=== PATIENT | male | born 1970 | race Caucasian/White ===

== ENCOUNTER 2024-11-11 12:57 | Inpatient (IN) | payer SELFPAY ==
[~2024-11-11] VITALS: Ht 180.3 cm; Wt 70.3 kg
[2024-11-11] MEDS ORDERED: LORazepam 2 MG/ML 1ML Injection IV ONE ×3 (13:05→22:00)
[2024-11-11 13:43] LABS: BASOPHILS ABSOLUTE AUTO 0.24 K/mm3 (0.00-0.23); BASOPHILS PERCENT AUTO 1 % (0-2); EOSINOPHILS ABSOLUTE AUTO 0.45 K/mm3 (0.00-0.68); EOSINOPHILS PERCENT AUTO 2 % (0-6); Hematocrit 48.3 % (37.0-53.0); Hemoglobin 16.9 g/dL (13.5-17.5); IMMATURE GRAN ABSOLUTE AUTO 0.44 K/mm3 (0.00-0.10); IMMATURE GRAN PERCENT AUTO 2 % (0-1); LYMPHOCYTES ABSOLUTE AUTO 4.76 K/mm3 (0.84-5.20); LYMPHOCYTES PERCENT AUTO 18 % (21-46); MONOCYTES ABSOLUTE AUTO 3.42 K/mm3 (0.16-1.47); MONOCYTES PERCENT AUTO 13 % (4-13); Mean Corpuscular HGB Conc 35.0 g/dL (31.5-36.5); Mean Corpuscular Volume 88 fL (80-100); NEUTROPHILS ABSOLUTE AUTO 16.83 K/mm3 (1.96-9.15); NEUTROPHILS PERCENT AUTO 64 % (41-73); NRBC ABSOLUTE 0.00 K/mm3 (0.00-0.02); NRBC Auto 0.0 /100 WBC (0.0-0.2); Platelet Count 482 K/mm3 (150-400); RDW Coefficient Variation 14.4 % (11.7-14.2); RDW Standard Deviation 46.0 fL (35.1-46.3)
[2024-11-11 13:59] LABS: Alanine Aminotransfer (ALT/SGP 30.0 U/L (12-78); Albumin, Blood 3.4 g/dL (3.4-5.0); Albumin/Globulin Ratio 0.8 (0.8-1.8); Anion Gap 19.0 mmol/L (3-11); Aspartate Aminotrans (AST/SGOT 40.0 U/L (12-37); Bilirubin, Total 0.3 mg/dL (0.1-1.0); Blood Urea Nitrogen 18.0 mg/dL (8-24); CO2, Blood 18.0 mmol/L (21-32); Calcium, Blood 10.6 mg/dL (8.5-10.1); Chloride, Blood 100.0 mmol/L (98-108); Creatinine, Blood 1.25 mg/dL (0.60-1.20); Globulin, Blood 4.4 g/dL (2.2-4.0); Glucose, Blood 117.0 mg/dL (70-99); Potassium, Blood 3.8 mmol/L (3.5-5.5); Sodium, Blood 133.0 mmol/L (136-145); Total Protein, Blood 7.8 g/dL (6.4-8.2)
[2024-11-11] MEDS ORDERED: Diazepam 5 MG / ML 2ML SYR IV PRN (15:20)
[2024-11-11 15:46] LABS: pH Blood Venous 7.42 (7.34-7.37)
[2024-11-11 16:00] LABS: Automated CSF WBC Count 0.002 K/mm3 (0-5)
[2024-11-11 16:18] LABS: Influenza A, PCR NEGATIVE (NEGATIVE); Influenza B, PCR NEGATIVE (NEGATIVE); Resp Syncytial Virus, PCR NEGATIVE (NEGATIVE); SARS-Cov-2 (COVID-19) PCR, MMC NEGATIVE (NEGATIVE)
[2024-11-11 16:29] LABS: RBC Count, CSF 145 /mm3 (0-0)
[2024-11-11 16:35] LABS: WBC Count, CSF 2 /mm3 (0-5)
[2024-11-11] MEDS ORDERED: FLU VACC TS2025-26(6MOS UP)/PF 45 MCG/0.5 ML SYRINGE IM ONE (16:40)
[2024-11-11] MEDS ORDERED: NS 1,000 ML IV SCH (16:40)
[2024-11-11 17:27] LABS: Source, Urine Clean Catch
[2024-11-11 17:38] LABS: Bilirubin, Urine Neg (Neg); Color, Urine Yellow (P-Yellow); Glucose Qualitative, Urine Neg (Neg); Ketones, Urine Neg (Neg); Leukocyte Esterase, Urine Neg (Neg); Protein, Urine 1+ (Neg); Specific Gravity, Urine 1.010 (1.003-1.022); Urobilinogen, Urine NORM (Normal)
[2024-11-11 17:47] LABS: White Blood Cells, Urine 0-2 /hpf (0-5)
[2024-11-11 17:51] LABS: U Amphetamine Screen Not Detected; U Barbituate Screen Not Detected; U Benzodiazapine Screen DETECTED; U Buprenorphine Screen Not Detected; U Cannabinoids Screen DETECTED; U Cocaine Screen Not Detected; U Methadone Screen Not Detected; U Methamphetamine Screen Not Detected; U Opiates Screen Not Detected; U Oxycodone Screen Not Detected; U Phencyclidine Screen Not Detected
[2024-11-11] MEDS ORDERED: Labetalol HCL 5 MG/ML 4ML Injection (Single Dose) IV PRN (18:00)
[2024-11-11] MEDS ORDERED: Albuterol 2.5 MG/3 ML VIAL INH PRN (18:05)
[2024-11-11 18:33] LABS: Haemophilus Influenza Not Detected (NOT DETECT)
[2024-11-11 20:53] LABS: Anion Gap 10.0 mmol/L (3-11); Blood Urea Nitrogen 20.0 mg/dL (8-24); CO2, Blood 25.0 mmol/L (21-32); Calcium, Blood 9.5 mg/dL (8.5-10.1); Chloride, Blood 107.0 mmol/L (98-108); Creatinine, Blood 1.24 mg/dL (0.60-1.20); Glucose, Blood 96.0 mg/dL (70-99); Potassium, Blood 4.1 mmol/L (3.5-5.5); Sodium, Blood 138.0 mmol/L (136-145)
--- NOTE | 2024-11-11 21:20 | NUR ---
ARRIVAL NOTE PATIENT ARRIVES TO UNIT LETHARGIC AND NON-RESPONSIVE TO VERBAL STIMULI. ONCE STIMULATED HE BECAME VERY AGITATED AND NOT FOLLOWING COMMANDS. PATIENT MOVED TO PCU BED VIA SLIDE SHEET. PATIENT SOAKED IN URINE WITH ATTENDS ON. PATIENT CLEANED UP IN BED. BILAT IV IN PLACE WITH COBAN WRAPPED TIGHTLY AND BLOOD UNDER TEGADERM. ATTEMPTED TO GET BLOOD PRESSURE AND VITALS. PATIENT BECAME INCREASINGLY AGITATED AND PULLED BLOOD PRESSURE CUFF OFF MULTIPLE TIMES. PATIENT CONTINUES TO BE NOT REDIRECTABLE. PATIENT REMOVED GOWN. PATIENT ATTEMPTING TO GET OUT OF BED AND REQUIRING PHYSICAL RESTRAINT BY THIS RN AND JHONY MOHAN. REQUESTED CHARGE NURSE TO CALL PROVIDER FOR MEDICATION TO RELAX PATIENT. HR 97 AND BIOX WNL.
[2024-11-11 22:00] VITALS: BP 139/107
--- NOTE | 2024-11-11 22:17 | NUR ---
CN NOTIFYING HOSPITALIST RESIDENT THAT PATIENT CONT TO BE AGITATED IN NOT REDIRECTABLE AFTER ATIVAN ADMINISTRATION. PATIENT PLLING AT IV LINES, WIRES, AND HAS COMPLETELY REMOVED GOWN AND ATTENDS. BLADDER SCAN DONE 382ML.
[2024-11-11 22:49] LABS: pH Blood Venous 7.35 (7.34-7.37)
[2024-11-11 23:46] LABS: Influenza A/2009-H1 Not Detected (NOT DETECT); SARS-Cov-2 (COVID-19), BioFire Not Detected (NOT DETECT)
[2024-11-12] VITALS (8 sets, daily range): BP systolic 124–173; BP diastolic 71–122
[2024-11-12] MEDS ORDERED: LORazepam 2 MG/ML 1ML Injection IV PRN (00:50)
--- NOTE | 2024-11-12 01:46 | NUR ---
UPDATE PATIENT MORE CALM AFTER ATIVAN 2MG IV. APPEARS TO BE SLEEPING. SPO02 >95% ON ROOM AIR. CHEST RISE EVEN AND UNLABORED. PATIENT ABLE TO TOLERATE NIBP. SBP >170, MEDICATED WITH LABETALOL PER EMAR. BP IMPROVED. SPOKE WITH PATIENT'S DAUGHTER, BRIDGETTE, ON THE PHONE AND PROVIDED UPDATE. SHE REQUESTED TO BE CALLED IF PATIENT WAKES UP AND IS TALKING, OTHERWISE WILL BE IN TO HOSPITAL IN MORNING TO VISIT. PATIENT REMAINS IN SOFT RESTRAINTS FOR SAFETY AND TO PROTECT LINES, TUBING. LR INFUSING PER EMAR. MEPILEX PADS IN PLACE ON BILAT HEELS TO PREVENT INJURY DUE TO PATIENT KICKING HIS LEGS ON BED OCCASIONALLY. DOOR LEFT OPEN TO MONITOR. SEIZURE PRECAUTIONS IN PLACE.
--- NOTE | 2024-11-12 03:38 | NUR ---
SHIFT SUMMARY PATIENT HAS REMAINED IN SIMILAR MENTAL STATE SINCE ARRIVAL TO UNIT. HE HAS HAD PERIODS OF REST AND CALM, BUT HAS MOSTLY BEEN AGITATED. PATIENT HAS BEEN FLAILING AROUND IN BED APPEARING TO BE UNCOMFORTABLE. PATIENT DOES NOT SEEM TO BE COMPREHENDING VERBAL COMMANDS, BUT HAS OCCASIONALLY RESPONDED TO HIS NAME BY TURNING HIS FACE TOWARDS PERSON SAYING HIS NAME. PATIENT PROVIDED WITH FREQUENT VERBAL REASSURANCE AND REORIENTATION. PATIENT PROVIDED WARM BLANKETS FOR COMFORT. FREQUENT SKIN AND NEURO CHECKS WITH BILAT WRIST SOFT RESTRAINTS IN PLACE. INTERVENTIONS DON'T SEEM TO BE EFFECTIVE IN CHANGING HIS LEVEL OF AGITATION. PROVIDER WAS NOTIFIED OF AGITATION AND GIVEN ORDER TO GIVE 0.5MG ATIVAN IVP EARLY IN SHIFT. CALLED PROVIDER AFTERWARDS WHEN AGITATION CONTINUED AND RECEIVED DOSE FOR ATIVAN 1-2MG IVP PRN Q4 HOURS. MEDICATED SHORTLY AFTER 1AM WITH 2MG ATIVAN IVP, WHICH WAS EFFECTIVE FOR APPROX 60 MINUTES. NO SEIZURE ACTIVITY NOTED THUS FAR. CONTINUE TO PROVIDE VERBAL REASSURANCE AND REDIRECTION. PLAN OF CARE ON GOING.
[2024-11-12 03:51] LABS: BASOPHILS ABSOLUTE AUTO 0.09 K/mm3 (0.00-0.23); BASOPHILS PERCENT AUTO 1 % (0-2); EOSINOPHILS ABSOLUTE AUTO 0.01 K/mm3 (0.00-0.68); EOSINOPHILS PERCENT AUTO 0 % (0-6); Hematocrit 43.5 % (37.0-53.0); Hemoglobin 15.0 g/dL (13.5-17.5); IMMATURE GRAN ABSOLUTE AUTO 0.21 K/mm3 (0.00-0.10); IMMATURE GRAN PERCENT AUTO 1 % (0-1); LYMPHOCYTES ABSOLUTE AUTO 1.94 K/mm3 (0.84-5.20); LYMPHOCYTES PERCENT AUTO 11 % (21-46); MONOCYTES ABSOLUTE AUTO 2.04 K/mm3 (0.16-1.47); MONOCYTES PERCENT AUTO 11 % (4-13); Mean Corpuscular HGB Conc 34.5 g/dL (31.5-36.5); Mean Corpuscular Volume 87 fL (80-100); NEUTROPHILS ABSOLUTE AUTO 13.86 K/mm3 (1.96-9.15); NEUTROPHILS PERCENT AUTO 76 % (41-73); NRBC ABSOLUTE 0.00 K/mm3 (0.00-0.02); NRBC Auto 0.0 /100 WBC (0.0-0.2); Platelet Count 380 K/mm3 (150-400); RDW Coefficient Variation 14.7 % (11.7-14.2); RDW Standard Deviation 47.1 fL (35.1-46.3)
[2024-11-12 04:12] LABS: Alanine Aminotransfer (ALT/SGP 28.0 U/L (12-78); Albumin, Blood 3.2 g/dL (3.4-5.0); Albumin/Globulin Ratio 0.9 (0.8-1.8); Anion Gap 10.0 mmol/L (3-11); Aspartate Aminotrans (AST/SGOT 39.0 U/L (12-37); Bilirubin, Total 0.4 mg/dL (0.1-1.0); Blood Urea Nitrogen 19.0 mg/dL (8-24); CO2, Blood 25.0 mmol/L (21-32); Calcium, Blood 9.2 mg/dL (8.5-10.1); Chloride, Blood 111.0 mmol/L (98-108); Creatinine, Blood 1.1 mg/dL (0.60-1.20); Globulin, Blood 3.4 g/dL (2.2-4.0); Glucose, Blood 105.0 mg/dL (70-99); Magnesium, Blood 2.3 mg/dL (1.6-2.4); Potassium, Blood 4.2 mmol/L (3.5-5.5); Sodium, Blood 142.0 mmol/L (136-145); Total Protein, Blood 6.6 g/dL (6.4-8.2)
--- NOTE | 2024-11-12 04:20 | NUR ---
HOSPITALIST NOTIFIED OF CONTINUED AGITATION. OK TO GIVE ATIVAN EARLY PER MD.
[2024-11-12] MEDS ORDERED: Pantoprazole Sodium 40 MG Injection IV SCH (06:00)
--- NOTE | 2024-11-12 06:30 | NUR ---
PROVIDED UPDATE WITH DAUGHTER BRIDGETTE ON THE PHONE. QUESTIONS ANSWERED. MRI SCREENING FORM COMPLETED TO THE BEST OF HER KNOWLEDGE AND FAXED TO IMAGING.
[2024-11-12] MEDS ORDERED: Enoxaparin 40 MG/0.4 ML SYR SC SCH (09:00)
[2024-11-12] MEDS ORDERED: Haloperidol Lactate Inj. 5 MG/ML Injection IV PRN (09:10)
--- NOTE | 2024-11-12 09:23 | NUR ---
ASSUMPTION NOTE: THIS RN TO ASSUME CARE OF PATIENT. MELISSA CONTINUES TO BE IN WRIST RESTRAINTS WITH DAUGHTER BRIDGETTE AT BEDSIDE. PATIENT CONTINUES TO LOOK RESTLESS,KICKING FEET UP AND DOWN. MOVING HEAD BACK AND FORTH & TRYING TO GET OUT OF BED. MD ROUNDED THIS MORNING AND NEW MEDICATIONS WERE ADDED TO GIVE TO PATIENT PRIOR TO LEAVING FOR MRI THIS MORNING. PLAN WILL BE TO WAIT MRI RESULTS TO GET A CLEAR IDEA OF WHAT TO DO FARTHER. PATIENT DURADHAHTER AT BEDSIDE WHILE DOCTOR WAS TALKING TO BOTH.
[2024-11-12] MEDS ORDERED: Crestor40 MG PO (11:55)
[2024-11-12] MEDS ORDERED: SYNTHROID125 MC1 PO (11:56)
[2024-11-12] MEDS ORDERED: PRED5 PO (11:57)
[2024-11-12] MEDS ORDERED: DESMOPRESSIN A0.2 M1 (11:58)
[2024-11-12] MEDS ORDERED: FERSU300 PO (12:01)
[2024-11-12] MEDS ORDERED: UBID10 PO (12:01)
[2024-11-12] MEDS ORDERED: PANT40 PO (12:02)
[2024-11-12] MEDS ORDERED: Chantix1 MG PO (12:02)
[2024-11-12] MEDS ORDERED: LOSA50 PO (12:02)
[2024-11-12] MEDS ORDERED: VITAMIN D5000 UNIT PO (12:03)
--- NOTE | 2024-11-12 12:24 | NUR ---
MD ROUNDED: MD ROUNDED AND THIS RN SPOKE WITH HIM REGARDING PATIENT BEING GIVEN MEDICATIONS PRIOR TO GOING DOWN FOR MRI AT 12:30 BUT PATIENT CONTINUING TO BE AGITATED AND THRASHING IN BED. MD GAVE VERBAL ORDER FOR OTHER MEDICATIONS TO USE IF NEEDED. AWAITING PHARMACY VERIFICATION.
[2024-11-12] MEDS ORDERED: Diazepam 5 MG / ML 2ML SYR IV ONE (12:25)
--- NOTE | 2024-11-12 13:50 | NUR ---
MD CALLED: THIS RN CALLED MD REGARDING PATIENT NOT BEING ABLE TO HAVE THE MRI DONE DUE TO NOT BEING ABLE TO SIT STILL. PATIENT FAMILY AT BEDSIDE WAS MADE AWARE. NO NEW ORDERS AT THIS TIME.
--- NOTE | 2024-11-12 14:42 | NUR ---
MD ROUNDED: MD ROUNDED AND GAVE VERBAL ORDER TO DISCONTINUE RESTRAINTS AND ORDER NEW MRI SO THAT PATIENT CAN ATTEMPT AGAIN HE IS MORE CALM AND ASLEEP NOW. ORDERS WERE PLACED. MD MADE AWARE THAT PATIENTS BLOOD SUGAR WHEN CHECKED AND ORDERED Q4 CBG PATIENT IS NPO. MD ORDERED A NEW LUMBAR PUNCTURE AND ORDERED TESTS FOR THAT. PLAN MOVING FORWARD IS TO MONITOR FOR PATIENT TO CLEAR MENTATION AND POSSIBLY TRANSFER TO A LARGER FACILITY FOR NEUROLOGY. FAMILY WAS AT BEDSIDE AND AWARE OF PLAN.
[2024-11-12] MEDS ORDERED: Midazolam HCl 1MG / ML 2ML Vial ONE (15:10)
[2024-11-12] MEDS ORDERED: Midazolam HCl 1MG / ML 2ML Vial IV ONE (16:00)
[2024-11-12 16:02] LABS: Automated CSF RBC Count 0.002 M/mm3 (0-0); Automated CSF WBC Count 0.019 K/mm3 (0-5)
[2024-11-12 16:04] LABS: RBC Count, CSF 2000 /mm3 (0-0); WBC Count, CSF 19 /mm3 (0-5)
[2024-11-12 16:11] LABS: Automated CSF WBC Count 0.017 K/mm3 (0-5)
[2024-11-12 16:18] LABS: WBC Count, CSF 17 /mm3 (0-5)
[2024-11-12 16:28] LABS: RBC Count, CSF 470 /mm3 (0-0)
--- NOTE | 2024-11-12 16:46 | NUR ---
SHIFT SUMMARY: PATIENT IS ALERT TO VERBAL STIMULI AT TIMES, WILL TRACK AND OPEN EYES TO HIS NAME OCCASINALLY. MOANS AND KICKS FEETS AT TIMES. DAUGHTER IS AT BEDSIDE. IS ON ROOM AIR AND CONTINOUS PULSE OX IS ON. MRI WAS ABLE TO BE COMPLETED TODAY AFTER A LUMBAR PUNCTURE WELL. CALLED [facility] FOR POSSIBLE TRANSFER TO ANOTHER HOSPITAL FOR NEUROLOGY, FAMILY IS AWARE OF THAT. PATIENT WAS ABLE TO GET SOME REST TODAY AND RESTRAINTS WERE TAKEN OFF TODAY WELL. LACTATED RINGERS WERE STARTED AFTER LUMBAR PUNCTURE. PATIENT IS CURRENTLY IN BED RESTING,DAUGHTER AT BEDSIDE, BED IN LOWEST LOCKED POSITION & CALL LIGHT WITHIN REACH.
[2024-11-12 16:56] LABS: Lymphocytes, CSF 11 % (40-80); Monocytes, CSF 25 % (15-45); Neutrophils, CSF 64 % (0-6)
[2024-11-12 16:59] LABS: Lymphocytes, CSF 14 % (40-80); Monocytes, CSF 38 % (15-45); Neutrophils, CSF 48 % (0-6)
[2024-11-12] MEDS ORDERED: ALBU90OI INH (16:59)
--- NOTE | 2024-11-12 17:38 | NUR ---
MD CALLED: MD CALLED THIS RN AND NOTIFIED THAT [facility] IN [place] WILL BE ACCEPTING PATIENT AND THIS RN NOTIFIED FAMILY OF THAT. MD ASKED FOR IMAGES TO BE PUSHED WELL TO THEM. FAMILY WAS ALL NOTIFIED AND AGREEABLE.
[2024-11-12 18:18] LABS: Haemophilus Influenza Not Detected (NOT DETECT)
--- NOTE | 2024-11-12 21:15 | NUR ---
TRANSFER SUMMARY/SHIFT NOTE PATIENT LETHARGIC, MOSTLY NON-RESPONSIVE SINCE BEGINNING OF SHIFT. MINIMAL AGITATION NOTED. RESP EVEN AND UNLABORED, OCCASIONAL NON-PRODUCTIVE COUGH. VSS. PATIENT'S DAUGHTER AND FAMILY FRIEND AT BEDSIDE. UPDATED ON PLAN OF CARE, TRANSFER, AND QUESTIONS ANSWERED. PROVIDED ROOM NUMBER AND ADDRESS TO ACCEPTING FACILITY, WELL , THIS UNIT PHONE NUMBER TO CALL FOR [facility]. 2100: EMS CREW TO ROOM. BEDSIDE REPORT TO [facility] [employer]. PATIENT TRANSFERRED TO [facility] WITH SLIDER SHEET. MAINTENANCE NS INFUSING WITH KEPPRA PIGGY BACK TO BE COMPLETED ENROUTE. QUESTIONS ANSWERED. PATIENT DEPARTED WITH EMS CREW WITHOUT INCIDENT.
--- NOTE | 2024-11-12 21:40 | NUR ---
REPORT TO PAT OROURKE AT [facility].
[2024-11-13] MEDS ORDERED: Misc. Tablet PO SCH (09:00)
[2024-11-13] MEDS ORDERED: Cholecalciferol 1000 Unit Tablet (=25MCG) PO SCH (09:00)
[2024-11-14 21:45] LABS: WEST NILE VIRUS AB IGG CSF 0.5 IV (<=1.29); WEST NILE VIRUS AB IGM CSF 0.0 IV (<=0.89)
== END 2024-11-12 22:47 | disposition short-term general hospital (02) | DRG 100 ==
LOC: ER 12:57 → ERHOLD 12:58 → PCU 12:58
PROVIDERS: Emergency Medicine; Internal Medicine; Nurse Practitioner Acute Care; ADMIT Student in an Organized Health Care Education/Training Program
PROC: 009U3ZX Drainage of Spinal Canal, Percutaneous Approach, Diagnostic (ICD-10-PCS; principal; 2024-11-11)
DX: R56.9 Unspecified convulsions (principal); G92.8 Other toxic encephalopathy; E23.0 Hypopituitarism; J44.1 Chronic obstructive pulmonary disease with (acute) exacerbation; E87.20 Acidosis, unspecified; R65.10 Systemic inflammatory response syndrome (SIRS) of non-infectious origin without acute organ dysfunction; F17.210 Nicotine dependence, cigarettes, uncomplicated; I10 Essential (primary) hypertension; K21.9 Gastro-esophageal reflux disease without esophagitis; E78.5 Hyperlipidemia, unspecified; D50.9 Iron deficiency anemia, unspecified; E83.52 Hypercalcemia; F12.90 Cannabis use, unspecified, uncomplicated; Z79.899 Other long term (current) drug therapy; Z79.52 Long term (current) use of systemic steroids; Z79.890 Hormone replacement therapy
CPT/HCPCS: 0202U; 36415; 51701; 62270; 70450; 70551; 80048; 80053; 81001; 82803; 82945; 82947; 83605; 83735; 84157; 84439; 84443; 84481; 85025; 86403; 86788; 86789; 87070; 87205; 87483; 87637; 89051; 94760; 96361; 96365; 96366; 96367; 96374; 96375; 96376; 99285-25; A9270; G0378; J1630; J1720; J1953; J2060; J2250; J2470; J2597; J3360; J7120